=== PATIENT | male | born 1995 | race Caucasian/White ===

== ENCOUNTER 2017-08-25 05:52 | Emergency (ER) | payer BC, OTHER ==
[2017-08-25] MEDS: HYDROmorphONE 1 MG/5 ML IV SYRINGE IV ×2 (06:46→07:50)
[2017-08-25] MEDS: ONDANSETRON 4 MG INJ IV ×2 (06:46→07:49)
[2017-08-25] MEDS: SOD CHLORIDE 0.9% 500 ML IV (06:46)
== END 2017-08-25 09:24 | disposition home or self-care (01) ==
LOC: E/R 05:52
DX: G89.18 Other acute postprocedural pain (principal)
CPT/HCPCS: 96374; 96375; 96376; 99284-25